=== PATIENT | female | born 1945 | race Caucasian/White ===

== ENCOUNTER 2025-05-04 14:34 | Outpatient (CLI) | payer MEDICARE, SELFPAY | END 2025-05-04 14:35 | disposition home or self-care (01) | LOC: WOUND 14:42 | PROVIDERS: Visit Provider Physician Assistant | DX: S21.002A Unspecified open wound of left breast, initial encounter (principal); C50.912 Malignant neoplasm of unspecified site of left female breast; I48.91 Unspecified atrial fibrillation; R91.8 Other nonspecific abnormal finding of lung field; E46 Unspecified protein-calorie malnutrition; Z68.1 Body mass index [BMI] 19.9 or less, adult | CPT/HCPCS: G0463 ==

== ENCOUNTER 2025-06-29 15:07 | Outpatient (CLI) | payer MEDICARE, SELFPAY | END 2025-06-29 15:08 | disposition home or self-care (01) | LOC: WOUND 15:07 | PROVIDERS: Visit Provider Physician Assistant | DX: S21.002A Unspecified open wound of left breast, initial encounter (principal); C50.912 Malignant neoplasm of unspecified site of left female breast; S51.812A Laceration without foreign body of left forearm, initial encounter; W54.8XXA Other contact with dog, initial encounter; I48.91 Unspecified atrial fibrillation; E46 Unspecified protein-calorie malnutrition; R91.8 Other nonspecific abnormal finding of lung field; Z68.1 Body mass index [BMI] 19.9 or less, adult | CPT/HCPCS: 97597 ==

== ENCOUNTER 2025-07-27 15:32 | Outpatient (CLI) | payer MEDICARE, SELFPAY | END 2025-07-27 15:33 | disposition home or self-care (01) | LOC: WOUND 15:32 | PROVIDERS: Visit Provider Surgery | DX: S21.002D Unspecified open wound of left breast, subsequent encounter (principal); C50.912 Malignant neoplasm of unspecified site of left female breast; I48.91 Unspecified atrial fibrillation; E46 Unspecified protein-calorie malnutrition; R91.8 Other nonspecific abnormal finding of lung field | CPT/HCPCS: G0463 ==